=== PATIENT | female | born 1940 | race Caucasian/White ===

== ENCOUNTER → 2017-11-23 | Outpatient (CLI) | payer BC ==
[~2017-11-23] MED LIST: BNV150 PO; CALC500C70 PO; DRV100 PO; GLC500 PO; HRBLS PO; MULT-513 PO; OMEG10007 PO; THIA100T11 PO
--- NOTE | 2017-11-23 09:36 | DIAGNOSTIC IMAGING REPORT ---
RIGHT KNEE WITH BILATERAL AP STANDING VIEWS (4 views) CLINICAL HISTORY: RIGHT KNEE PAIN COMPARISON: None. DISCUSSION: No fractures or dislocations are visualized. The joint spaces appear well-preserved for age. There are minimal degenerative changes. There is a small sclerotic focus within the right proximal tibial metaphysis consistent with a bone island. There is no radiographic evidence of significant joint effusion. There are tiny dorsal patellar spurs. IMPRESSION: Minor degenerative change. No fractures or destructive lesions are visualized. Electronically signed by: Chris Roper M.D. 11/23/2017 9:35 AM Dictated Date/Time: 11/23/2017 9:34 AM
== END | disposition home or self-care (01) ==
LOC: C.RDSM 09:15
PROVIDERS: ATTEND Internal Medicine
DX: M17.11 Unilateral primary osteoarthritis, right knee (principal)